=== PATIENT | male | born 1995 | race Caucasian/White ===

== ENCOUNTER 2017-06-10 11:14 | Inpatient (IN) | payer BC, OTHER ==
[~2017-06-10] VITALS: Ht 188 cm; Wt 68.0 kg
[2017-06-10 12:55] VITALS: BP 118/63
--- NOTE | 2017-06-10 12:55 | NUR ---
PRE ASSESSMENT: A 22 YO MALE IN INTAKE IS A/O X 4. HIS GAIT IS STEADY. HE REPORTS NKA. HE REPORTS USING IV HEROIN DAILY FOR 2 MONTHS. 1 GM DAILY. LAST USES 1/4 GM THIS AM AROUND 9AM. HE STATES HE ALSO USES XANAX AND METH ON OCCASION BUT THE HEROIN IS DAILY. HE DENIES PMH. VS WNL. HE DENIES SZ HX. WILL ASSESS ON UNIT.
[2017-06-10] MEDS ORDERED: DOCUSATE SODIUM 250 MG CAPSULE PO PRN (13:00)
[2017-06-10] MEDS ORDERED: LORAZEPAM 1 MG TABLET PO PRN ×2 (13:00)
[2017-06-10] MEDS ORDERED: LORAZEPAM 2 MG/1 ML VIAL IM PRN (13:00)
[2017-06-10] MEDS ORDERED: ONDANSETRON 4 MG/2 ML VIAL IM PRN (13:00)
[2017-06-10] MEDS ORDERED: IBUPROFEN 600 MG TABLET PO PRN (13:00)
[2017-06-10] MEDS ORDERED: LOPERAMIDE HCL 2 MG CAPSULE PO PRN ×2 (13:00)
[2017-06-10] MEDS ORDERED: MAGNESIUM HYDROXIDE 30 ML LIQUID UDC PO PRN (13:00)
[2017-06-10] MEDS ORDERED: MAG HYDROX/AL HYDROX/SIMETH 30 ML LIQUID UDC PO PRN (13:00)
[2017-06-10] MEDS ORDERED: CLONIDINE HCL 0.1 MG TABLET PO PRN (13:00)
[2017-06-10] MEDS ORDERED: diphenhydrAMINE 50 MG CAPSULE PO PRN (13:00)
[2017-06-10] MEDS ORDERED: METHOCARBAMOL 750 MG TABLET PO PRN (13:00)
[2017-06-10] MEDS ORDERED: MIRALAX 17 GM POWD.PACK PO PRN (13:00)
[2017-06-10] MEDS ORDERED: DICYCLOMINE HCL 20 MG TABLET PO PRN (13:00)
[2017-06-10] MEDS ORDERED: ONDANSETRON ODT 4 MG TAB.RAPDIS SL PRN (13:00)
[2017-06-10] MEDS ORDERED: HYDROXYZINE PAMOATE 25 MG CAPSULE PO PRN (13:00)
[2017-06-10] MEDS ORDERED: BUPRENORPHINE HCL 2 MG TAB.SUBL SL PRN (13:00)
[2017-06-10] MEDS ORDERED: ACETAMINOPHEN 325 MG TABLET PO PRN (13:00)
--- NOTE | 2017-06-10 14:13 | NUR ---
ADMISSION: A 22 Y O MALE ADMITTED FOR MEDICALLY SUPERVISED WITHDRAWAL OF HEROIN. HE STATES HE USES IV HEROIN 1 GM DAILY X 2 MONTHS. LAST USED 1/4 GM THIS AM. HE ALSO USES METH ABOUT EVERY OTHER DAY 1 GM IV/SMOKING. LAST USED 1/2 GM 06/09/17. HE STATES HE HAD 4 MONTHS CLEAN FROM AUGUST TO NOVEMBER. HE REPORTS USING IN THIS PATTERN FOR 2 MONTHS AND CANNOT STOP USING ON HIS OWN. HE REPORTS USING XANAX ONCE I A WHILE WELL. HE REPORTS PMH OF HEP C SINCE 2013. HE DENIES ANY OTHER MEDICAL HX. DENIES SZ. HX. DENIES ALLERGIES. HE DENIES A PCP. HE STATES HE HAS BEEN IN A FEW PLACES FOR TREATMENT BUT CANNOT REMEMBER ALL OF THEM. [facility] IN [place] AND [facility] IN [place] ARE A COUPLE HE MENTIONED. HE PRESENTS WITH BLUNTED AFFECT AND DEPRESSED MOOD. HE DENIES S/I AND H/I. HE STATES HE FEELS SOME BODY ACHES BUT IS NOT "SICK" YET. HE IS UNABLE TO PROVIDE URINE AT THIS TIME. PT STATES HE IS TIRED AND WANTS TO SLEEP. ORIENTED PT TO STAFF AND UNIT. WILL CONTINUE TO MONITOR AND PROVIDE SAFE AND SUPPORTIVE ENVIRONMENT. Addendum: 06/10/17 at 1501 by RYAN MANZANO RN HE STATES HE USES XANAX 2-6 MG ABOUT TWICE A WEEK.
[2017-06-10] MEDS ORDERED: QUET50TA PO (14:24)
[2017-06-10] MEDS ORDERED: VARE1TAB21 PO (14:24)
[2017-06-10 14:56] LABS: ALANINE AMINOTRANSFERASE 195 U/L (16-63); ALKALINE PHOSPHATASE 67 U/L (50-136); ASPARTATE AMINOTRANSFERASE 65 U/L (15-37); BILIRUBIN,TOTAL 0.6 mg/dL (0.2-1.0); CARBON DIOXIDE 34 mmol/L (21-32); CHLORIDE 102 mmol/L (98-107); CREATININE 1.1 mg/dL (0.6-1.3); GLUCOSE 90 mg/dL (74-106); MAGNESIUM 2.2 mg/dL (1.8-2.4); POTASSIUM 3.9 mmol/L (3.5-5.1); TOTAL PROTEIN, SERUM 7.6 g/dL (6.4-8.2); UREA NITROGEN, BLOOD 14 mg/dL (7-18)
[2017-06-10 15:04] LABS: BASOPHILS % (AUTO) 0.7 % (0.0-2.0); EOSINOPHILS # (AUTO) 0.1 K/uL (0.0-0.7); EOSINOPHILS % (AUTO) 1.6 % (0.0-7.0); HEMATOCRIT 46.9 % (36.7-47.1); HEMOGLOBIN 16.8 g/dL (12.5-16.3); LYMPHOCYTES # (AUTO) 1.3 K/uL (20.0-40.0); LYMPHOCYTES % (AUTO) 26.9 % (20.5-74.5); MEAN CORPUSCULAR HEMOGLOBIN 30.2 uug (23.8-33.4); MEAN CORPUSCULAR HGB CONC 36 g/dL (32.5-36.3); MEAN CORPUSCULAR VOLUME 84.5 fL (73.0-96.2); MONOCYTES # (AUTO) 0.3 K/uL (2.0-10.0); MONOCYTES % (AUTO) 6.3 % (0-11); NEUTROPHILS # (AUTO) 3.2 K/uL (1.8-8.9); NEUTROPHILS % (AUTO) 64.5 % (31.5-64.5); PLATELET COUNT (AUTO) 193 K/uL (152-348); RED BLOOD CELL COUNT(AUTO) 5.55 MIL/uL (4.06-5.63); WHITE BLOOD COUNT (AUTO) 4.9 K/uL (3.6-10.2)
--- NOTE | 2017-06-10 15:05 | NUR ---
LAST USE OF XANAX 4 DAYS AGO (4MG.)
[2017-06-10 15:17] LABS: ETHANOL < 3 MG/DL (0-0)
[2017-06-10 16:00] VITALS: BP 125/75
--- NOTE | 2017-06-10 16:00 | NUR ---
COWS AND CIWA DEFERRED PT IS ASLEEP.
--- NOTE | 2017-06-10 16:38 | NUR ---
OBTAINED URINE FOR UDS.
[2017-06-10 17:02] LABS: *AMPHETAMINE, URINE NEGATIVE (NEGATIVE); *BARBITURATE, URINE NEGATIVE (NEGATIVE); *CANNABINOID, URINE POSITIVE (NEGATIVE); *COCCAINE, URINE NEGATIVE (NEGATIVE); *OPIATE, URINE POSITIVE (NEGATIVE); *PHENCYCLIDINE SCREEN,URINE NEGATIVE (NEGATIVE)
--- NOTE | 2017-06-10 18:38 | NUR ---
END OF SHIFT: PT IS NEWLY ADMITTED AND HAS BEEN RESTING IN BED SINCE HIS ASSESSMENT. COWS AT 1600 DEFERRED.NO MEDS GIVEN. HE DENIES FEELING"SICK" YET BUT FEELS VERY FATIGUED. ENCOURAGED INCREASED FLUIDS. VS WNL. WILL PASS SHIFT REPORT TO ONCOMING NIGHT NURSE.
[2017-06-10 20:00] VITALS: BP 113/52
--- NOTE | 2017-06-10 20:00 | NUR ---
Start of Shift Pt is a 22 year old male admitted for Opiate dependence, placed on Subutex taper. Pt reports using Heroin IV 1g/daily, methamphetamine IV/smoke g/daily and Xanax 2-6mg 2x weekly. PMH: Hepatitis C. NKA, fall/seizure precautions and full code. Upon assessment, pt reports feeling anxious, restless, unable to sit still, tremors felt upon touch, reports muscle/joint aches, nose runny, eyes tearing, Respirations even/unlabored, denies SOB/chest pain, denies n/v/d, medications due. Safety measures in place, call light within reach, side rails up x2, bed locked and in low positions. Will continue to monitor.
[2017-06-10] MEDS: GABAPENTIN 300 MG CAPSULE PO SCH (20:50)
[2017-06-10] MEDS ORDERED: BUPRENORPHINE HCL 2 MG TAB.SUBL SL SCH (21:00)
[2017-06-10] MEDS ORDERED: LORAZEPAM 1 MG TABLET PO SCH (21:00)
[2017-06-11] VITALS: BP 104/51
--- NOTE | 2017-06-11 | NUR ---
CIWA/COWS deferred d/t sleeping, to assess while pt is awake as ordered. BP 104/51, pulse 61, resp 18, SpO2 99% room air, temp 97.[address], will continue to monitor.
[2017-06-11 04:00] VITALS: BP 96/63
--- NOTE | 2017-06-11 04:00 | NUR ---
CIWA/COWS deferred d/t sleeping, to assess while pt is awake as ordered. BP 96/43, pulse 65, resp 16, SpO2 99% room air, temp 97.[address], will continue to monitor.
[2017-06-11 06:06] LABS: HEPATITIS B SURFACE AG Negative (Negative)
--- NOTE | 2017-06-11 07:11 | NUR ---
End of Shift Pt is a 22 year old male admitted for Opiate dependence, placed on Subutex taper. Pt reports using Heroin IV 1g/daily, methamphetamine IV/smoke g/daily and Xanax 2-6mg 2x weekly. PMH: Hepatitis C. NKA, fall/seizure precautions and full code. During shift, pt reported feeling anxious, restless, unable to sit still, tremors felt upon touch, reports muscle/joint aches, nose runny, eyes tearing scheduled taper medications administered, COWS 9 and CIWA 9. No PRN medications administered during shift. Pt slept for 8 hours, intake of 256ml PO, voids x1 and stool x0. Safety measures in place, call light within reach, side rails up x2, bed locked and in low positions. Endorsed to day shift nurse.
--- NOTE | 2017-06-11 07:15 | NUR ---
Start of Shift Endorsement received from nightshift nurse. Pt is a 22 y/o male admitted for Heroin and meth dependence. Pt also reports occasional use of Xanax. Pt has been placed on a 5 day Subutex taper. PT is experiencing moderate to severe withdrawal symptoms AEB COWS 9, CIWA 9 at 0400. Pt did not receive any PRN medications. Pt reports sleeping 7 hours. PT is alert and oriented x4. Pt is in STABLE condition at this time. Remains compliant with medication and diet regimen. All needs have been met, All safety measures in place per hospital policy. Bed in lowest position, side rails up x2, call-light within reach. Will continue to monitor
[2017-06-11 08:00] VITALS: BP 111/56
[2017-06-11] MEDS: GABAPENTIN 300 MG CAPSULE PO SCH ×2 (08:47→20:51)
[2017-06-11] MEDS: BUPRENORPHINE HCL 2 MG TAB.SUBL SL SCH ×3 (08:48→20:50)
[2017-06-11] MEDS ORDERED: TUBERCULIN,PURIF.PROT.DERIV. 5 TU/0.1 ML TEST ID ONE (09:00)
[2017-06-11 12:00] VITALS: BP 105/55
[2017-06-11] MEDS ORDERED: HYDROXYZINE PAMOATE 25 MG CAPSULE PO PRN (15:15)
[2017-06-11 16:00] VITALS: BP 115/57
--- NOTE | 2017-06-11 18:58 | NUR ---
End of Shift Endorsement given to nightshift nurse. Pt is a 22 y/o male admitted for Heroin and meth dependence. Pt also reports occasional use of Xanax. Pt has been placed on a 5 day Subutex taper. PT is experiencing moderate to severe withdrawal symptoms AEB COWS 7, CIWA 6 at 0400. Pt did not receive any PRN medications. Pt participated in groups and activities. Educated pt on diet and medication regimen. Encouraged pt to drink more fluids. Intake: 1750ml, Void x3, BM x1. PT is alert and oriented x4. Pt is in STABLE condition at this time. Remains compliant with medication and diet regimen. All needs have been met, All safety measures in place per hospital policy. Bed in lowest position, side rails up x2, call-light within reach. Will continue to monitor
[2017-06-11 20:00] VITALS: BP 127/64
--- NOTE | 2017-06-11 20:00 | NUR ---
Start of Shift Pt is a 22 year old male admitted for Opiate dependence, placed on Subutex taper. Pt reports using Heroin IV 1g/daily, methamphetamine IV/smoke g/daily and Xanax 2-6mg 2x weekly. PMH: Hepatitis C. NKA, fall/seizure precautions and full code. Upon assessment, pt reports feeling anxious, unable to sit still, reports body aches throughout body, nose runny, eyes tearing with stomach cramps, Respirations even/unlabored, denies SOB/chest pain, denies n/v/d, medications due. Safety measures in place, call light within reach, side rails up x2, bed locked and in low positions. Will continue to monitor.
[2017-06-11] MEDS ORDERED: LORAZEPAM 1 MG TABLET PO SCH (21:00)
[2017-06-12] VITALS: BP 123/66
--- NOTE | 2017-06-12 | NUR ---
COWS/CIWA deferred d/t Pt sleeping, to assess while is awake as ordered. BP 123/66, pulse 87, resp 16, SpO2 97% room air, temp [address], will continue to monitor.
[2017-06-12 04:00] VITALS: BP 104/53
--- NOTE | 2017-06-12 04:00 | NUR ---
COWS/CIWA deferred d/t Pt sleeping, to assess while is awake as ordered. BP 104/53, pulse 63, resp 16, SpO2 98% room air, temp 97.[address], will continue to monitor.
--- NOTE | 2017-06-12 07:00 | NUR ---
End of Shift Pt is a 22 year old male admitted for Opiate dependence, placed on Subutex taper. Pt reports using Heroin IV 1g/daily, methamphetamine IV/smoke g/daily and Xanax 2-6mg 2x weekly. PMH: Hepatitis C. NKA, fall/seizure precautions and full code. During shift, pt reported feeling anxious, unable to sit still, reported body aches throughout body, nose runny, eyes tearing with stomach cramps scheduled taper medications administered, COWS 9 and CIWA 7. No PRN medications administered during shift. Pt slept for 6 hours, intake of 800 ml PO, voids x2 and stool x0. Pt slept for 6 hours, intake of 800 ml PO, voids x2 and stool x0. Safety measures in place, call light within reach, side rails up x2, bed locked and in low positions. Endorsed to day shift nurse.
--- NOTE | 2017-06-12 07:12 | NUR ---
Start of Shift Endorsement received from nightshift nurse. Pt is a 22 y/o male admitted for Heroin and meth dependence. Pt also reports occasional use of Xanax. Pt has been placed on a 5 day Subutex taper. PT is experiencing moderate to severe withdrawal symptoms AEB COWS 9, CIWA 7 at 1999. Pt did not receive any PRN medications. Pt reports sleeping 6 hours. PT is alert and oriented x4. Pt is in STABLE condition at this time. Remains compliant with medication and diet regimen. All needs have been met, All safety measures in place per hospital policy. Bed in lowest position, side rails up x2, call-light within reach. Will continue to monitor
[2017-06-12 08:00] VITALS: BP 103/56
[2017-06-12] MEDS: GABAPENTIN 300 MG CAPSULE PO SCH ×2 (08:47→21:30)
[2017-06-12] MEDS ORDERED: BUPRENORPHINE HCL 2 MG TAB.SUBL SL SCH ×2 (09:00→15:00)
[2017-06-12 12:00] VITALS: BP 112/61
[2017-06-12] MEDS: BUPRENORPHINE HCL 2 MG TAB.SUBL SL SCH ×2 (14:32→21:30)
[2017-06-12 16:00] VITALS: BP 103/56
--- NOTE | 2017-06-12 18:55 | NUR ---
End of Shift Endorsement given to nightshift nurse. Pt is a 22 y/o male admitted for Heroin and meth dependence. Pt also reports occasional use of Xanax. Pt has been placed on a 5 day Subutex taper. PT is experiencing moderate to severe withdrawal symptoms AEB COWS 6, CIWA 5 at 1600. Pt did not receive any PRN medications. Pt participated in groups and activities. Educated pt on S/E of medications. Encouraged pt to participate in group and activities. Intake: 1737ml, Void x3, BM x0. PT is alert and oriented x4. Pt is in STABLE condition at this time. Remains compliant with medication and diet regimen. All needs have been met, All safety measures in place per hospital policy. Bed in lowest position, side rails up x2, call-light within reach. Will continue to monitor
[2017-06-12 20:00] VITALS: BP 127/78
--- NOTE | 2017-06-12 20:00 | NUR ---
Start of Shift Pt is a 22 year old male admitted for Opiate dependence, placed on Subutex taper. Pt reports using Heroin IV 1g/daily, methamphetamine IV/smoke g/daily and Xanax 2-6mg 2x weekly. PMH: Hepatitis C. NKA, fall/seizure precautions and full code. Upon assessment, pt reports feeling anxious, reports body aches throughout body, stomach cramps, skin noted with moderate sweat, respirations even/unlabored, denies SOB/chest pain, denies n/v/d, medications due. Safety measures in place, call light within reach, side rails up x2, bed locked and in low positions. Will continue to monitor.
[2017-06-13] VITALS: BP 121/69
[2017-06-13 04:00] VITALS: BP 103/59
--- NOTE | 2017-06-13 04:00 | NUR ---
COWS/CIWA deferred d/t sleeping, to assess while pt is awake as ordered. BP 103/59, pulse 74, resp 16, SpO2 99% room air, temp 98.[address], will continue to monitor.
--- NOTE | 2017-06-13 07:12 | NUR ---
End of Shift Pt is a 22 year old male admitted for Opiate dependence, placed on Subutex taper. Pt reports using Heroin IV 1g/daily, methamphetamine IV/smoke g/daily and Xanax 2-6mg 2x weekly. PMH: Hepatitis C. NKA, fall/seizure precautions and full code. During shift, pt reported feeling anxious, reports body aches throughout body, stomach cramps, skin noted with moderate sweat scheduled taper medications administered, effective in management of s/s of withdrawal as reported per pt, COWS 7 and CIWA 4. No PRN medications administered during shift. Pt slept for 6 hours, intake of 1100 ml PO, voids x2 and stool x0. Safety measures in place, call light within reach, side rails up x2, bed locked and in low position. Endorsed to day shift nurse.
[2017-06-13 08:00] VITALS: BP 101/60
--- NOTE | 2017-06-13 08:05 | NUR ---
START OF SHIFT: RECEIVED PT A/O X 4. HE REPORTS SWEATS,CHILLS,BODY ACHES AND RESTLESSNESS. COWS 6. SUBUTEX TAPER IN PROGRESS TO MANAGE S/S OF W/D. ENCOURAGED INCREASED FLUIDS. ENCOURAGED GROUP ATTENDANCE TO IMPROVE COPING SKILLS AND PREVENT RELAPSE.WILL CONTINUE TO MONITOR AND OFFER SUPPORT.
[2017-06-13] MEDS ORDERED: BUPRENORPHINE HCL 2 MG TAB.SUBL SL SCH (09:00)
[2017-06-13] MEDS: GABAPENTIN 300 MG CAPSULE PO SCH ×2 (09:16→21:21)
[2017-06-13] MEDS: BUPRENORPHINE HCL 2 MG TAB.SUBL SL SCH ×4 (09:16→21:21)
[2017-06-13 12:00] VITALS: BP 113/60
[2017-06-13 16:00] VITALS: BP 122/74
--- NOTE | 2017-06-13 18:43 | NUR ---
END OF SHIFT: PT CONTINUES ON SUBUTEX TAPER TO MANAGE S/S OF W/D. LAST COWS 3. HE STATES THE DETOX MEDS ARE EFFECTIVE. NO PRNS GIVEN. PT DID NOT ATTEND GROUPS AND STATED HE NEEDED REST. HE WAS COMPLIANT WITH INCREASED FLUIDS . WILL PASS SHIFT REPORT TO ONCOMING NIGHT NURSE.
--- NOTE | 2017-06-13 19:30 | NUR ---
START OF SHIFT Pt is a 22 y/o male admitted for Heroin and meth dependence. Pt also reports occasional use of Xanax. Pt continues on 5 day Subutex taper as ordered.Ho A/R noted. PT is alert and oriented x4. Pt is in STABLE condition at this time. Remains compliant with medication and diet regimen. Last COWS=3.All needs have been met, All safety measures in place per hospital policy. Bed in lowest position, side rails up x2, call-light within reach. Will continue to monitor
[2017-06-13 20:00] VITALS: BP 113/58
[2017-06-14] VITALS: BP 132/63
[2017-06-14 04:00] VITALS: BP 97/50
--- NOTE | 2017-06-14 04:00 | NUR ---
COWS/CIWA DEFERRED D/T PT BEING IN DEEP SLEEP.BREATHING IS EVEN AND NON LABORED.NO S/S OF DISTRESS NOTED.
--- NOTE | 2017-06-14 06:43 | NUR ---
END OF SHIFT Pt is a 22 y/o male admitted for Heroin and meth dependence. Pt also reports occasional use of Xanax. Pt continues on 5 day Subutex taper as ordered.No A/R noted. PT is alert and oriented x4. Pt is in STABLE condition at this time. Remains compliant with medication and diet regimen. Last COWS=3.No PRN meds given this shift;Pt slept 7 hrs,fluid intake was 795 mls,voided x 3.All needs have been met, All safety measures in place per hospital policy. Bed in lowest position, side rails up x2, call-light within reach. Will continue to monitor
[2017-06-14 08:00] VITALS: BP 103/65
--- NOTE | 2017-06-14 08:08 | NUR ---
Start of shift note; Received report from night nurse. Patient is a 22 year old male admitted on 06/10/17 for Opiate, Meth and Benzodiazepine dependence. Patient reported history of hepatitis C. Patient is on regular diet, NKA, on full code status. Patient is fall and seizure precaution. Bed in lowest position, call light within reach. Patient's last COWS is 3. All safety measures secured. Will continue to monitor patient.
[2017-06-14] MEDS ORDERED: BUPRENORPHINE HCL 2 MG TAB.SUBL SL SCH ×2 (09:00)
[2017-06-14] MEDS: BUPRENORPHINE HCL 2 MG TAB.SUBL SL SCH ×3 (09:46→22:01)
[2017-06-14] MEDS: GABAPENTIN 300 MG CAPSULE PO SCH ×2 (09:46→22:01)
[2017-06-14 12:00] VITALS: BP 103/65
[2017-06-14 16:00] VITALS: BP 122/63
--- NOTE | 2017-06-14 19:04 | NUR ---
End of shift note; Patient is AOx4. Patient is a 22 year old male admitted on 06/10/17 for Opiate, Meth and Benzodiazepine dependence. Patient reported history of hepatitis C. Patient is on regular diet, NKA, on full code status. Patient is fall and seizure precaution. Bed in lowest position, call light within reach. Patient remained compliant with treatment plan and medication regime. All safety measures secured. Met all needs.
--- NOTE | 2017-06-14 19:15 | NUR ---
START OF SHIFT Received 22 year old male patient admitted on 06/10/17 for Opiate, Meth, and Xanax dependency. Pt is full code with NKA. He reports a PMHx of Hep C. He reports using Heroin 1 gram IV daily. Last dose was gram on 06/10/17. Methamphetamine gram IV/smoking daily. Last dose was gram on 06/09/17. And Xanax 2-6 mg twice weekly. Last dose was on 06/06/17. He is placed on a 5 day Subutex taper and is tolerating well. Per endorsement, he did not receive or request PRN medications. He is alert and oriented x4, breathing is even and unlabored. Safety measures in place. Will monitor.
[2017-06-14 20:00] VITALS: BP 123/69
[2017-06-15] VITALS: BP 130/65
--- NOTE | 2017-06-15 00:02 | NUR ---
PRN BENADRYL Pt complains on inability to fall asleep. PRN Benadryl administered as ordered. Will monitor effectiveness.
--- NOTE | 2017-06-15 01:05 | NUR ---
PRN BENADRYL REASSESSMENT PRN medication effective. Pt is lying in bed with eyes closed noted to be asleep. Breathing even and unlabored. Safety measures in place. Will monitor.
--- NOTE | 2017-06-15 04:10 | NUR ---
VITALS REFUSED, COWS/CIWA DEFERRED 0400 vitals refused. COWS/CIWA deferred d/t pt lying in bed with eyes closed. Breathing even and unlabored. Safety measures in place. Will monitor.
--- NOTE | 2017-06-15 07:06 | NUR ---
END OF SHIFT Pt is a 22 year old male patient admitted on 06/10/17 for Opiate, Meth, and Xanax dependency. Pt is full code with NKA. He continues on a 5 day Subutex taper and is tolerating well. At 002 he received PRN Benadryl. He slept a total of 5 hrs, Intake:1687mL, Void:x3, BM:x1, COWS: 4, CIWA:4. He remains alert and oriented x4, breathing is even and unlabored. Safety measures in place. Endorsed to AM shift.
[2017-06-15 08:00] VITALS: BP 103/61
--- NOTE | 2017-06-15 08:10 | NUR ---
Start of shift note; Received report from night nurse. Patient is a 22 year old male admitted on 06/10/17 for Opiate, Meth and Benzodiazepine dependence. Patient reported history of hepatitis C. Patient is on regular diet, NKA, on full code status. Patient is fall and seizure precaution. Bed in lowest position, call light within reach. Patient's last COWS is 3 and CIWA of 4 per endorsement. Patient slept for 5 hours. All safety measures secured. Will continue to monitor patient.
[2017-06-15] MEDS ORDERED: BUPRENORPHINE HCL 2 MG TAB.SUBL SL SCH (09:00)
[2017-06-15] MEDS: GABAPENTIN 300 MG CAPSULE PO SCH ×2 (09:22→21:55)
[2017-06-15] MEDS: BUPRENORPHINE HCL 2 MG TAB.SUBL SL SCH ×2 (09:23→21:55)
[2017-06-15 12:00] VITALS: BP 98/69
[2017-06-15] MEDS: OSELTAMIVIR PHOSPHATE 75 MG CAPSULE PO SCH (13:36)
--- NOTE | 2017-06-15 13:47 | NUR ---
MD order; MD ordered prophylactic Tamiflu to prevent flu. Patient is afebrile,no s/s of flu at this time. Will continue to monitor patient .
[2017-06-15 16:00] VITALS: BP 94/68
--- NOTE | 2017-06-15 18:36 | NUR ---
End of shift note; Patient is AOX4. Patient is a 22 year old male admitted on 06/10/17 for Opiate, Meth and Benzodiazepine dependence. Patient reported history of hepatitis C. Patient is on regular diet, NKA, on full code status. Patient is fall and seizure precaution. Bed in lowest position, call light within reach. Patient remained compliant with treatment plan and medication regime. Medications noted to be effective in reducing withdrawal symptoms. All safety measures secured. Met all needs.
--- NOTE | 2017-06-15 19:15 | NUR ---
Start of Shift Note: Patient is a 22 y.o male admitted on 06/10/17 for Opiate dependence. Patient has PMHx of Hepatitis C. No seizure history noted. Patient is on a regular diet with no known food and drug allergies. Full Code status. Skin noted to be intact. Patient is on a Subutex taper and tolerating well. No advsere reactions noted. Last COWS 3 CIWA 3. No PRN medications given during day shift. Patient is alert & oriented x4. No shortness of breath noted. Respiration even & unlabored. Abdomen soft & non-distended. No nausea/vomiting noted. Patient denies any pain/discomfort. Slight anxiety noted. Patient noted with no hand tremors. Patient denies any hallucinations. Safety precautions in place. Bed locked in lowest position. Both side rails up. Call light within pts reach. Will continue to monitor patient.
[2017-06-15 20:00] VITALS: BP 125/65
--- NOTE | 2017-06-15 22:30 | NUR ---
RN NOTE: Scheduled medications given. Observed patient removing medication from his mouth and tried to hide it in his hand. Patient was then asked to open his hand and the Subutex was there. Educated patient the importance of compliance of medication and consequences of not following unit rules & protocols. Witnessed patient taking the medication and placed the Subutex under his tongue. Watched patient carefully until medication dissolved. Charge Nurse and administration made aware. Will continue to monitor patient.
--- NOTE | 2017-06-16 07:27 | NUR ---
End of Shift Note: Patient had an uneventful night. Patient continues on his 5-day Subutex taper and is tolerating well. No adverse reaction noted. Patient presented with slight anxiety and with COWS 2 CIWA 2 noted @ 2000. Patient did not receive any PRN medications during my shift. Closely monitor symptoms of withdrawal. Vitals monitored closely and noted within normal limits. Patient remained stable throughout my shift. Patient shows no s/s of distress. Patient still asleep in bed. Patient slept for a total of 6 hour. Fluid intake 1787ml. Voided 2x with no bowel movement. All needs attended & met. Safety measures in place. Will continue to monitor patient.
--- NOTE | 2017-06-16 07:53 | NUR ---
Start of shift note; Received patient from night nurse. Patient is a 22 year old male admitted on 06/10/17 for Opiate and Benzodiazepine dependence. Patient is currently resting with eyes closed, respirations even and unlabored. Patient is on fall precaution. Bed in lowest position, call light within reach. Will closely monitor patient.
[2017-06-16 08:00] VITALS: BP 98/67
[2017-06-16] MEDS ORDERED: BUPRENORPHINE HCL 2 MG TAB.SUBL SL SCH (09:00)
[2017-06-16] MEDS: OSELTAMIVIR PHOSPHATE 75 MG CAPSULE PO SCH (09:05)
[2017-06-16] MEDS: GABAPENTIN 300 MG CAPSULE PO SCH ×2 (09:05→20:43)
[2017-06-16 12:00] VITALS: BP 130/72
[2017-06-16] MEDS ORDERED: GABA-534 PO (14:07)
[2017-06-16] MEDS ORDERED: DICY20TA28 PO (14:07)
[2017-06-16] MEDS ORDERED: IBUP-1955 PO (14:07)
[2017-06-16] MEDS ORDERED: METH-406 PO (14:07)
[2017-06-16] MEDS ORDERED: HYDR-3895 PO (14:07)
[2017-06-16] MEDS ORDERED: DIPH50CA37 PO (14:07)
[2017-06-16 16:00] VITALS: BP 124/67
--- NOTE | 2017-06-16 18:50 | NUR ---
End of shift note; Patient is AOX4. Patient is a 22 year old male admitted on 06/10/17 for Opiate, Meth and Benzodiazepine dependence. Patient reported history of hepatitis C. Patient is on regular diet, NKA, on full code status. Patient is fall and seizure precaution. Bed in lowest position, call light within reach. Patient remained compliant with treatment plan and medication regime. Medications noted to be effective in reducing withdrawal symptoms. Patient's last CIWA is 1 and last COWS is 1. Patient is medically cleared for discharge tomorrow. All safety measures secured. Met all needs.
--- NOTE | 2017-06-16 19:15 | NUR ---
Start of Shift Note: Patient is a 22 y.o male admitted on 06/10/17 for Opiate dependence. Patient has PMHx of Hepatitis C. No seizure history noted. Patient is on a regular diet with no known food and drug allergies. Full Code status. Skin noted to be intact. Patient completed his Subutex taper and he is scheduled to be discharge tomorrow. Patient verbalized readiness to be discharge. Last COWS 1 CIWA 1. No PRN medications given during day shift. Patient is alert & oriented x4. No shortness of breath noted. Respiration even & unlabored. Abdomen soft & non-distended. No nausea/vomiting noted. Patient denies any pain/discomfort. Slight anxiety noted. Patient noted with no hand tremors. Patient denies any hallucinations. Safety precautions in place. Bed locked in lowest position. Both side rails up. Call light within pts reach. Will continue to monitor patient.
[2017-06-16 20:00] VITALS: BP 121/73
--- NOTE | 2017-06-16 20:43 | NUR ---
PRN Vistaril Patient complained of mild anxiety. PRN Vistaril administered as ordered. Will monitor for effectiveness of medication.
--- NOTE | 2017-06-16 21:43 | NUR ---
PRN Reassessment Patient verbalized decreased in anxiety. Pt observed in activity room watching TV. Patient appears calm. Will continue to monitor patient.
--- NOTE | 2017-06-17 07:06 | NUR ---
End of Shift Note: Patient had an uneventful night. Patient is a 22 y.o male admitted for Opiate dependence. Patient completed his 5-day Subutex taper and is scheduled to be discharge today. Last COWS 2 CIWA 1 noted. Patient received PRN Vistaril during my shift and was effective. Closely monitor symptoms of withdrawal. Vitals monitored closely and noted within normal limits. Patient is compliant with medications and treatment plan. Patient remained stable throughout my shift. Patient shows no s/s of distress. Patient still asleep in bed. Patient slept for a total of 6 hour. Fluid intake 750ml. Voided 1x with 1x bowel movement. All needs attended & met. Safety measures in place. Will continue to monitor patient.
--- NOTE | 2017-06-17 07:40 | NUR ---
START OF SHIFT NOTE Received report from night nurse, 22 year old male admitted for Opiate dependence. Patient has PMH of Hepatitis C. Patient completed his Subutex taper tolerated well. Per endorsement pt received PRN Vistaril effective per night nurse, last COWS score was-2, CIWA-1, slept for 6 hours. Patient scheduled for discharge today. Patient received awake, alert and oriented x4. Patient was educated regarding plan of care for the day and medication regimen. Safety measures in place. call light with in reach. Will continue to monitor.
[2017-06-17 08:00] VITALS: BP 120/60
[2017-06-17] MEDS: OSELTAMIVIR PHOSPHATE 75 MG CAPSULE PO SCH (08:21)
[2017-06-17] MEDS: GABAPENTIN 300 MG CAPSULE PO SCH (08:21)
--- NOTE | 2017-06-17 09:40 | NUR ---
DISCHARGE NOTE Patient is in stable condition. Vital signs WNL, Patient is alert oriented x4, Skin intact warm and dry to touch. Patient denies any SI/HI ideations. All discharge paper work done signed and dated. Patient educated about discharge instructions, Pt verbalized understanding. Patient 's last COWS score was 1and CIWA was 1. Patient discharged from [facility] on 06/17/17 at 0940. Patient left the building with all of his belongings and prescriptions and medications with him to the unit. has been contracted and notified of Pt's discharge.
== END 2017-06-17 09:40 | disposition other institution (70) | DRG 895 ==
LOC: SRC 11:57
PROVIDERS: ADMIT Internal Medicine; ATTEND Internal Medicine
PROC: HZ2ZZZZ Detoxification Services for Substance Abuse Treatment (ICD-10-PCS; principal; 2017-06-10)
PROC: HZ31ZZZ Individual Counseling for Substance Abuse Treatment, Behavioral (ICD-10-PCS; 2017-06-12)
PROC: HZ41ZZZ Group Counseling for Substance Abuse Treatment, Behavioral (ICD-10-PCS; 2017-06-13)
DX: F11.23 Opioid dependence with withdrawal (principal); E87.3 Alkalosis; E86.0 Dehydration; F17.210 Nicotine dependence, cigarettes, uncomplicated; F13.230 Sedative, hypnotic or anxiolytic dependence with withdrawal, uncomplicated; F15.23 Other stimulant dependence with withdrawal; Z81.1 Family history of alcohol abuse and dependence; G47.00 Insomnia, unspecified; F41.9 Anxiety disorder, unspecified; Z20.828 Contact with and (suspected) exposure to other viral communicable diseases; B19.20 Unspecified viral hepatitis C without hepatic coma
CPT/HCPCS: 36415; 70030-TC; 80307; 80349; 80361; 83735; 85025; 86592; 86705; 86803; 87340; 87806; A4663; G0480; Q0163